=== PATIENT | female | born 2000 | race Caucasian/White ===

== ENCOUNTER 2018-01-28 23:04 | Emergency (ER) | payer BC, SELFPAY ==
[2018-01-28 23:06] VITALS: BP 119/95; PULSE 84; RESP 16; TEMP 36.4; O2SAT 97; BMI 42.9
--- NOTE | 2018-01-28 23:36 | ED.VIS.GEN ---
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 Cannot remember if her last menstrual cycle was 1 month ago or 2 months ago. She states she had severe sharp pelvic nonlateralizing pain tonight that is now gone. No nausea or vomiting, she had some urinary frequency for a short period of time but now she is urinating normally. She has had no vaginal bleeding, discharge, or gunter of fluid. Prior similar symptoms: No Past Medical History - Allergies and Home Meds Allergies/Adverse Reactions: Allergies ciprofloxacin Allergy (Verified 01/28/18 23:46) Angioedema ibuprofen Allergy (Verified 01/28/18 23:46) Angioedema Primary Care Physician: [facility] Doctor,Out of [NON-STAFF] - Past Medical History: None Lives: Roommate Drugs: None Review of Systems General: Reports: - - no syncope/near-syncope. Denies: Chills, Fever Eyes: Denies: Visual changes - bilaterally, Diplopia Gastrointestinal: Reports: Abdominal pain. Denies: Nausea, Vomiting, Diarrhea, Constipation, Hematochezia Genitourinary: Denies: Dysuria, Hematuria, Frequency, - - no vaginal bleeding Musculoskeletal: Denies: Back pain Physical Exam Vital Signs/Narrative: Vital Signs Temp Pulse Resp BP Pulse Ox 01/28/18 23:06 97.6 F L 84 16 119/95 H 97 Inital Vital Signs reviewed: Yes General: Well nourished, Well developed, Obese Head: Normocephalic, Atraumatic Cardiovascular: Regular rate, Regular rhythm, No murmurs. Negative for: Tachycardia Respiratory: No distress, CTA bilaterally Abdomen: Soft, Nontender, Nondistended, Normal bowel sounds Back: Nontender, Normal Inspection. Negative for: CVA tenderness Skin: Normal color, No rash Neurological: Alert, Oriented x3, Cranial nerves II-XII grossly intact, Normal Strength, Normal Sensation, Normal Gait Psychological: Normal affect Diagnostic/Tx/Re-eval Impressions Obstetrics Ultrasound 01/29/18 00:13 IMPRESSION: Single viable intrauterine gestation of 6 weeks, 1 day with estimated date of delivery of 09/23/2018. Minimal free fluid in the cul-de-sac. 2.9 cm simple appearing right ovarian cyst. Electronically Signed: Quang Jaime MD at 2:20 EST , Service support , 01/29/18 00:13 Transvaginal w/Preg US [US] Stat Laboratory Results 01/29/18 01/29/18 00:38 00:40 HCG, Quant 4307 H Urine Color Yellow Urine Clarity Clear Urine pH 6.0 Ur Specific [place] 1.020 Urine Protein Negative Urine Glucose (UA) Normal Urine Ketones Negative Urine Occult Blood Negative Urine Nitrite Negative Urine Bilirubin Negative Urine Urobilinogen Normal Ur Leukocyte Esterase Negative Urine RBC 0 SEEN Urine WBC 0 SEEN Ur Squamous Epith Cells 0-5 SEEN Urine Bacteria RARE Urine Mucus 1+ - Medical Decision Making I performed a bedside ultrasound with our screening ED ultrasound machine, however I was not able to see any intrauterine contents. Exam is somewhat limited secondary to obesity, and without having a full bladder, that also made it difficult. Therefore given her symptoms and undetermined early , further workup was obtained including a stat transvaginal ultrasound to rule out ectopic, urinalysis, hCG quantitative. Her quant is 4300, urinalysis is normal, and ultrasound verifies a single live intrauterine at approximately 6 weeks. There is also a simple ovarian cyst and a small amount of free fluid. No evidence of ectopic or heterotopic. 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 ED Disposition - Plan for ED Patient: Disposition: Home or Assisted Living Chief Complaint: Abd Pain Diagnosis: Threatened Instructions: ED Abdominal Pain Rule Out Ectopic Prescriptions: Vits96/Iron Fum/Folic [ Tablet] 1 ea PO DAILY #30 tab Referrals: [facility] Doctor,Out of [NON-STAFF] - Anna Marie Mcginnis MD [STAFF PHYSICIAN] - 1-2 Weeks
--- NOTE | 2018-01-28 23:40 | ED.DCSUM_ITS ---
History of Present Illness Chief Complaint: Abd Pain Informant: Patient Onset: Today - about 1-2 hrs [employer] Context: Sudden Onset - at rest Timing: Intermittent - x1, Lasts - 15 min Quality: sharp Location: pelvis Current Severity: gone Maximum Severity: Severe Worsened by: nothing Relieved by: nothing - spontaneously resolved Associated Symptoms: none Narrative: Patient states she is , she had a positive home test as well and is a positive qualitative test at the [facility], 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 Cannot remember if her last menstrual cycle was 1 month ago or 2 months ago. She states she had severe sharp pelvic nonlateralizing pain tonight that is now gone. No nausea or vomiting, she had some urinary frequency for a short period of time but now she is urinating normally. She has had no vaginal bleeding, discharge, or gunter of fluid. Prior similar symptoms: No Past Medical History - Allergies and Home Meds Allergies/Adverse Reactions: Allergies ciprofloxacin Allergy (Verified 01/28/18 23:46) Angioedema ibuprofen Allergy (Verified 01/28/18 23:46) Angioedema Primary Care Physician: [facility] Doctor,Out of [NON-STAFF] - Past Medical History: None Lives: Roommate Drugs: None Review of Systems General: Reports: - - no syncope/near-syncope. Denies: Chills, Fever Eyes: Denies: Visual changes - bilaterally, Diplopia Gastrointestinal: Reports: Abdominal pain. Denies: Nausea, Vomiting, Diarrhea, Constipation, Hematochezia Genitourinary: Denies: Dysuria, Hematuria, Frequency, - - no vaginal bleeding Musculoskeletal: Denies: Back pain Physical Exam Vital Signs/Narrative: Vital Signs Temp Pulse Resp BP Pulse Ox 01/28/18 23:06 97.6 F L 84 16 119/95 H 97 Inital Vital Signs reviewed: Yes General: Well nourished, Well developed, Obese Head: Normocephalic, Atraumatic Cardiovascular: Regular rate, Regular rhythm, No murmurs. Negative for: Tachycardia Respiratory: No distress, CTA bilaterally Abdomen: Soft, Nontender, Nondistended, Normal bowel sounds Back: Nontender, Normal Inspection. Negative for: CVA tenderness Skin: Normal color, No rash Neurological: Alert, Oriented x3, Cranial nerves II-XII grossly intact, Normal Strength, Normal Sensation, Normal Gait Psychological: Normal affect Diagnostic/Tx/Re-eval Impressions Obstetrics Ultrasound 01/29/18 00:13 IMPRESSION: Single viable intrauterine gestation of 6 weeks, 1 day with estimated date of delivery of 09/23/2018. Minimal free fluid in the cul-de-sac. 2.9 cm simple appearing right ovarian cyst. Electronically Signed: Quang Jaime MD at 2:20 EST , Service support , 01/29/18 00:13 Transvaginal w/Preg US [US] Stat Laboratory Results 01/29/18 01/29/18 00:38 00:40 HCG, Quant 4307 H Urine Color Yellow Urine Clarity Clear Urine pH 6.0 Ur Specific [place] 1.020 Urine Protein Negative Urine Glucose (UA) Normal Urine Ketones Negative Urine Occult Blood Negative Urine Nitrite Negative Urine Bilirubin Negative Urine Urobilinogen Normal Ur Leukocyte Esterase Negative Urine RBC 0 SEEN Urine WBC 0 SEEN Ur Squamous Epith Cells 0-5 SEEN Urine Bacteria RARE Urine Mucus 1+ - Medical Decision Making I performed a bedside ultrasound with our screening ED ultrasound machine, however I was not able to see any intrauterine contents. Exam is somewhat limited secondary to obesity, and without having a full bladder, that also made it difficult. Therefore given her symptoms and undetermined early , further workup was obtained including a stat transvaginal ultrasound to rule out ectopic, urinalysis, hCG quantitative. Her quant is 4300, urinalysis is normal, and ultrasound verifies a single live intrauterine at approximately 6 weeks. There is also a simple ovarian cyst and a small amount of free fluid. No evidence of ectopic or heterotopic. 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 ED Disposition - Plan for ED Patient: Disposition: Home or Assisted Living Chief Complaint: Abd Pain Diagnosis: Threatened Instructions: ED Abdominal Pain Rule Out Ectopic Prescriptions: Vits96/Iron Fum/Folic [ Tablet] 1 ea PO DAILY #30 tab Referrals: [facility] Doctor,Out of [NON-STAFF] - Anna Marie Mcginnis MD [STAFF PHYSICIAN] - 1-2 Weeks
--- NOTE | 2018-01-29 00:13 | US_ITS ---
STUDY: FIRST TRIMESTER OBSTETRICAL ULTRASOUND REASON FOR EXAM: Female, 17 years old. Pelvic pain. Positive test. LMP: 12/09/2017. TECHNIQUE: Transvaginal TECHNICAL QUALITY: Adequate. PRIOR ULTRASOUND: None. FINDINGS: There is visualization of a single gestational sac in a normal intrauterine position. The mean sac diameter (MSD) measures 9.9 mm, indicating an estimated gestational age (EGA) of 5 weeks, 5 days. The gestational sac shape is within normal limits. There is a visualized yolk sac. The yolk sac measures 3.4 mm.. The placenta is non-visualized. There is visualization of a live embryo. The crown-rump length (CRL) measures 4.0 mm, indicating an estimated gestational age (EGA) of 6 weeks, 1 days. There is demonstrated cardiac activity with a heart rate of 119 bpm. The estimated gestation age (EGA) by LMP is 70 weeks, 2 days. The estimated date of delivery (JOHNATHAN) by LMP is 09/15/2018.. The estimated gestation age (EGA) by US is 6 weeks, 1 days. The estimated date of delivery (JOHNATHAN) by US is 09/23/2018.. The uterus measures 9.1 x 6.1 x 5.1 cm. There is no demonstrated uterine fibroid. The cervix is closed. The right ovary measures 2.9 x 3.3 x 2.5 cm. There is a 2.9 cm simple appearing right ovarian cyst. There is no visualized right adnexal mass or complex lesion. There is vascular flow in the right ovary with no evidence for torsion. The left ovary was not visualized. There is a small amount of fluid in the cul de sac. US/Transvaginal w/Preg US IMPRESSION: Single viable intrauterine gestation of 6 weeks, 1 day with estimated date of delivery of 09/23/2018. Minimal free fluid in the cul-de-sac. 2.9 cm simple appearing right ovarian cyst. Electronically Signed: Quang Jaime MD at 2:20 EST , Service support ,
[2018-01-29 00:46] LABS: Red Blood Cells-Urine 0 SEEN /hpf (0-5); White Blood Cells 0 SEEN /hpf (0-5)
[2018-01-29 00:57] LABS: Color, Urine Yellow (Yellow); Glucose, Dipstick Normal (Normal); Ketone-Dipstick Negative (Negative); Leukocyte Esterase-Dipstick Negative /ul (Negative); Nitrite-Dipstick Negative (Negative); Occult Blood-Urine Negative /ul (Negative); Protein-Dipstick Negative (Negative); Urine Bilirubin Dipstick Negative (Negative); Urine Clarity Clear (Clear); Urine Urobilinogen Normal (Normal)
[2018-01-29 01:06] LABS: Bacteria RARE /hpf (None Seen); Mucous, Urine 1+ /hpf (<or=2+); Squamous Epithelial Cells - UA 0-5 SEEN /hpf (5-10)
[2018-01-29 01:48] LABS: hCG Titer Quant., Serum 4307 mIU/mL (<9 non-preg)
[2018-01-29 03:02] VITALS: BP 131/76; PULSE 76; RESP 15; O2SAT 99
--- OUTSIDE RECORDS SUMMARY | 2018-03-24 02:15 | XMS RPT_ITS ---
:2000 Author Organization OHIP Care Team Providers Name Role Phone KERRY DURHAM (BEN) Attending Unavailable JANAK HULL Attending Unavailable Primay Care Physicia, No Primary Care Unavailable PROBLEMS PROBLEMS No Problem Records FoundPROCEDURES PROCEDURES No Procedure Records FoundRESULTS RESULTS PROGRESS Observed: 01/31/2018 Status: COMPLETED Source: [place] 2:12 PM [facility] REPOSITORY HNO ID: [id number] Author: Kerry Durham Service: (none) Author Type: [employer] Type: Progress Notes Filed: 01/31/2018 6:23 PM Note Text: Milena Carlson is a 17 year old female who presents for problem visit for ER follow-up after evaluation after episode of RLQ pain on Monday for 1 day. 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 Monday RLQ pain noted, went to ER for pain. Resolved while in ER. Had RLQ that was sharp, knife stabbing pain. Patient LMP = 12/16/17 and she reports +uhcg when she presented to ER. Per ER report, negative findings for UTI and vaginal infections. Limited TVUS showed IUP 6+1 day with +CA (119 heart rate). 2cm cyst noted on Rt. Ovary. Currently patient has not had pain return, presents today with no pain. Patient reports some support at this time with unplanned . Reports ex-boyfriend knows she is but he has encouraged her to consider . Patient reports concern about her parents finding out she is ; especially her father who is strict and would not support her. Patient at this time is considering adoption options, but she is unsure and is still thinking about options. No past medical history on file. No past surgical history on file. No family history on file. Social History Marital status: Single Spouse name: Years of education: Number of children: Social History Main Topics Drug use: Unknown No current outpatient prescriptions on file. No current facility-administered medications for this visit. Allergies As of Date: 01/31/2018 (Not on File) REVIEW OF SYSTEMS Abdomen: No bloating, early satiety, indigestion, or increased flatulence. No abdominal pain, nausea, vomiting, diarrhea, or constipation. Bladder: No dysuria, gross hematuria, urinary frequency, urinary urgency, or incontinence. Breast: No breast lumps, nipple d/c, overlying skin changes, redness or skin retraction. Expanded ROS: N/A Allergies and current medication updated:Yes EXAM: BP 110/58 Ht 5' 7 (1.70m) Wt 266 lb (120.7kg) LMP 12/16/2017 BMI 41.65 kg/(m2). GENERAL: pleasant, female in no apparent distress HEENT: Normocephalic, atraumatic, mucus membranes moist and no lesions NECK: Supple, full range of motion, no adenopathy and thyroid normal DERMATOLOGY: Normal, without lesions, non-icteric and non-hirsute BREAST: deferred CHEST: Normal inspiratory effort ABDOMEN: soft, non-tender, no masses and pannus moderate PELVIC: deferred BIMANUAL: deferred NEURO: alert and oriented x3,exam grossly non-focal EXTREMITIES: normal ASSESSMENT AND PLAN: Encounter Diagnosis ICD-10-CM 1. 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 Follow-up exam Z09 1) [facility] Booklet given for review - to schedule PNOB + NOB visit. Patient prefers to schedule in 4 weeks after new year and after her winter break 2) Options counseling initiated 3) Initiation of teaching done - will continue at PNOB visit. Kerry Durham APRN.BENM CNOV Observed: 01/31/2018 Status: COMPLETED Source: [place] 2:00 PM [facility] REPOSITORY Office Visit (WOOB) MILENA CARLSON ([id number]) 2000 F Date Time Provider Department 01/31/18 2:00 PM KERRY DURHAM (BEN) BHAVYA During your visit today, we recorded the following information about you: Blood pressure Weight Height Last Period 110/58 120.7 kg 1.702 m 12/16/17 Kerry Durham APRN.CNM 01/31/2018 6:23 PM Signed Milena Carlson is a 17 year old female who presents for problem visit for ER follow-up after evaluation after episode of RLQ pain on Monday for 1 day. 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 Monday RLQ pain noted, went to ER for pain. Resolved while in ER. Had RLQ that was sharp, knife stabbing pain. Patient LMP = 12/16/17 and she reports +uhcg when she presented to ER. Per ER report, negative findings for UTI and vaginal infections. Limited TVUS showed IUP 6+1 day with +CA (119 heart rate). 2cm cyst noted on Rt. Ovary. Currently patient has not had pain return, presents today with no pain. Patient reports some support at this time with unplanned . Reports ex-boyfriend knows she is but he has encouraged her to consider . Patient reports concern about her parents finding out she is ; especially her father who is strict and would not support her. Patient at this time is considering adoption options, but she is unsure and is still thinking about options. No past medical history on file. No past surgical history on file. No family history on file. Social History Marital status: Single Spouse name: Years of education: Number of children: Social History Main Topics Drug use: Unknown No current outpatient prescriptions on file. No current facility-administered medications for this visit. Allergies As of Date: 01/31/2018 (Not on File) REVIEW OF SYSTEMS Abdomen: No bloating, early satiety, indigestion, or increased flatulence. No abdominal pain, nausea, vomiting, diarrhea, or constipation. Bladder: No dysuria, gross hematuria, urinary frequency, urinary urgency, or incontinence. Breast: No breast lumps, nipple d/c, overlying skin changes, redness or skin retraction. Expanded ROS: N/A Allergies and current medication updated:Yes EXAM: BP 110/58 Ht 5' 7 (1.70m) Wt 266 lb (120.7kg) LMP 12/16/2017 BMI 41.65 kg/(m2). GENERAL: pleasant, female in no apparent distress HEENT: Normocephalic, atraumatic, mucus membranes moist and no lesions NECK: Supple, full range of motion, no adenopathy and thyroid normal DERMATOLOGY: Normal, without lesions, non-icteric and non-hirsute BREAST: deferred CHEST: Normal inspiratory effort ABDOMEN: soft, non-tender, no masses and pannus moderate PELVIC: deferred BIMANUAL: deferred NEURO: alert and oriented x3,exam grossly non-focal EXTREMITIES: normal ASSESSMENT AND PLAN: Encounter Diagnosis ICD-10-CM 1. 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 Follow-up exam Z09 1) [facility] Booklet given for review - to schedule PNOB + NOB visit. Patient prefers to schedule in 4 weeks after new year and after her winter break 2) Options counseling initiated 3) Initiation of teaching done - will continue at PNOB visit. KASEY Schmitt APRN.CNM 01/31/2018 2:55 PM Signed [employer] Chewable Vitamins - 2 daily Gummy Vitamins Referring Provider: SELF [200] Allergies As of Date: 01/31/2018 Noted Allergy Reaction CIPROFLOXACIN 01/31/2018 14 - Other: See Comments Comments: Angiodima IBUPROFEN 01/31/2018 14 - Other: See Comments Comments: Angiodima Date Reviewed: 01/31/2018 Reviewed by: Gena Alford Ma - Fully Assessed Reason for Visit: Early OB [Other] Primary Visit Diagnosis:Secondary amenorrhea [N91.1] Other Visit Diagnosis:Follow-up exam [Z09] Problem List As Of Date: 01/31/2018 (None) Other instructions from your clinician: [employer] Chewable Vitamins - 2 daily Gummy Vitamins Disposition: Return in about 4 weeks (around 02/28/2018), or if symptoms worsen or fail to improve. Follow-up and Disposition History Recorded Encounter Status:Closed by KERRY DURHAM CNM on 01/31/18 EMERGENCY DEPARTMENT Observed: 01/29/2018 Status: F Source: [place] SUMMARY 2:35 AM [facility] REPOSITORY 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 Cannot remember if her last menstrual cycle was 1 month ago or 2 months ago. She states she had severe sharp pelvic nonlateralizing pain tonight that is now gone. No nausea or vomiting, she had some urinary frequency for a short period of time but now she is urinating normally. She has had no vaginal bleeding, discharge, or gunter of fluid. Prior similar symptoms: No Past Medical History - Allergies and Home Meds Allergies/Adverse Reactions: Allergies ciprofloxacin Allergy (Verified 01/28/18 23:46) Angioedema ibuprofen Allergy (Verified 01/28/18 23:46) Angioedema Primary Care Physician: [facility] Doctor,Out of [NON-STAFF] - Past Medical History: None Lives: Roommate Drugs: None Review of Systems General: Reports: - - no syncope/near-syncope. Denies: Chills, Fever Eyes: Denies: Visual changes - bilaterally, Diplopia Gastrointestinal: Reports: Abdominal pain. Denies: Nausea, Vomiting, Diarrhea, Constipation, Hematochezia Genitourinary: Denies: Dysuria, Hematuria, Frequency, - - no vaginal bleeding Musculoskeletal: Denies: Back pain Physical Exam Vital Signs/Narrative: Vital Signs 01/28/18 23:06 97.6 F L 84 16 119/95 H 97 Inital Vital Signs reviewed: Yes General: Well nourished, Well developed, Obese Head: Normocephalic, Atraumatic Cardiovascular: Regular rate, Regular rhythm, No murmurs. Negative for: Tachycardia Respiratory: No distress, CTA bilaterally Abdomen: Soft, Nontender, Nondistended, Normal bowel sounds Back: Nontender, Normal Inspection. Negative for: CVA tenderness Skin: Normal color, No rash Neurological: Alert, Oriented x3, Cranial nerves II-XII grossly intact, Normal Strength, Normal Sensation, Normal Gait Psychological: Normal affect Diagnostic/Tx/Re-eval Impressions Obstetrics Ultrasound 01/29/18 00:13 IMPRESSION: Single viable intrauterine gestation of 6 weeks, 1 day with estimated date of delivery of 09/23/2018. Minimal free fluid in the cul-de-sac. 2.9 cm simple appearing right ovarian cyst. Electronically Signed: Quang Jaime MD at 2:20 EST , Service support , 01/29/18 00:13 Transvaginal w/Preg US [US] Stat Laboratory Results HCG, Quant 4307 H Urine Color Yellow Urine Clarity Clear Urine pH 6.0 - Medical Decision Making I performed a bedside ultrasound with our screening ED ultrasound machine, however I was not able to see any intrauterine contents. Exam is somewhat limited secondary to obesity, and without having a full bladder, that also made it difficult. Therefore given her symptoms and undetermined early , further workup was obtained including a stat transvaginal ultrasound to rule out ectopic, urinalysis, hCG quantitative. Her quant is 4300, urinalysis is normal, and ultrasound verifies a single live intrauterine at approximately 6 weeks. There is also a simple ovarian cyst and a small amount of free fluid. No evidence of ectopic or heterotopic. 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 ED Disposition - Plan for ED Patient: Disposition: Home or Assisted Living Chief Complaint: Abd Pain Diagnosis: Threatened Instructions: ED Abdominal Pain Rule Out Ectopic Prescriptions: Vits96/Iron Fum/Folic [ Tablet] 1 ea PO DAILY #30 tab Referrals: Town Doctor,Out of [NON-STAFF] - Anna Marie Mcginnis MD [STAFF PHYSICIAN] - 1-2 Weeks What to do if you have Problems For any increased pain, shortness of breath, bleeding, nausea or vomiting, chest pain, or any unexpected problems, contact your Primary Care Provider. Call [facility] ([phone]) or report to the closest Emergency Room. Call 911 if necessary. 01/29/18 0235 <Electronically signed by Janak Hull MD> Date Janak Hull MD Cosigner Signature (If Indicated): Date CC: No Primary Care Physician HCG TITER QUANT., Collected: 01/29/2018 Status: F Source: [place] 12:40 AM [facility] REPOSITORY TYPE CODE TESTS RESULT OUT OF RANGE REFERENCE UNITS LAB L700.8000 <9 non-preg mIU/mL High HCG 4307 QUANT. Performed By: #### L700.8000 #### [facility] [address] [place], [place], [address] URINALYSIS, COMPLETE Collected: 01/29/2018 Status: F Source: [place] 12:38 AM [facility] REPOSITORY Order Comment: Order Date: 01/29/18 How was Urine Obtained? CLEAN CATCH TYPE CODE TESTS RESULT OUT OF RANGE REFERENCE UNITS LAB L400.3000 Yellow COLOR Normal Yellow LAB L400.3050 Clear Normal CLARITY Clear LAB L400.3200 Normal mg/dl Normal GLUCOSE, UR Normal LAB L400.3300 Negative mg/dL Normal BILIRUBIN URINE Negative LAB L400.3400 Negative mg/dl Normal KETONE UR Negative LAB L400.3465 1.002-1.030 Normal SP.GR. DIPSTX 1.020 LAB L400.3550 5.0 - 8.0 pH UR Normal 6.0 LAB L400.3600 Negative mg/dl PROT Normal DIPSTX Negative LAB L400.3700 Normal mg/dl Normal UROBILI Normal LAB L400.3750 Negative Normal NITRITE UR Negative LAB L400.3780 Negative /ul Normal OCCULT BLOOD-UR Negative LAB L400.3800 Negative /ul LEUK Normal ESTERASE Negative LAB L400.4050 0-5 /hpf WBC 0 Normal SEEN LAB L400.4100 0-5 /hpf 0 Normal RBC-UA SEEN LAB L400.4150 5-10 /hpf SQUAM Normal EPI 0-5 SEEN LAB L400.4300 None Seen /hpf Normal BACTERIA RARE LAB L400.4350 <or=2+ /hpf 1+ Normal MUCUS, URINE Performed By: #### L400.0001 #### [facility] [address] [place], [address] TRANSVAGINAL W/PREG US Observed: 01/29/2018 Status: F Source: [place] 12:14 AM [facility] REPOSITORY [facility] Imaging Services [address] [place] [address] Transvaginal w/Preg US MR#: [id number] Acct: [id number] Name: MILENA CARLSON Rep #: [id number] : 2000 F 17 From: Quang Jaime MD PCP: Care Physician, No Primary Status: REG ER Study: Transvaginal w/Preg US Date of Exam: 01/29/18 Exam# [id number] Ordering Dr: Janak Hull MD STUDY: FIRST TRIMESTER OBSTETRICAL ULTRASOUND REASON FOR EXAM: Female, 17 years old. Pelvic pain. Positive test. LMP: 12/09/2017. TECHNIQUE: Transvaginal TECHNICAL QUALITY: Adequate. PRIOR ULTRASOUND: None. FINDINGS: There is visualization of a single gestational sac in a normal intrauterine position. The mean sac diameter (MSD) measures 9.9 mm, indicating an estimated gestational age (EGA) of 5 weeks, 5 days. The gestational sac shape is within normal limits. There is a visualized yolk sac. The yolk sac measures 3.4 mm.. The placenta is non-visualized. There is visualization of a live embryo. The crown-rump length (CRL) measures 4.0 mm, indicating an estimated gestational age (EGA) of 6 weeks, 1 days. There is demonstrated cardiac activity with a heart rate of 119 bpm. The estimated gestation age (EGA) by LMP is 70 weeks, 2 days. The estimated date of delivery (JOHNATHAN) by LMP is 09/15/2018.. The estimated gestation age (EGA) by US is 6 weeks, 1 days. The estimated date of delivery (JOHNATHAN) by US is 09/23/2018.. The uterus measures 9.1 x 6.1 x 5.1 cm. There is no demonstrated uterine fibroid. The cervix is closed. The right ovary measures 2.9 x 3.3 x 2.5 cm. There is a 2.9 cm simple appearing right ovarian cyst. There is no visualized right adnexal mass or complex lesion. There is vascular flow in the right ovary with no evidence for torsion. The left ovary was not visualized. There is a small amount of fluid in the cul de sac. US/Transvaginal w/Preg US IMPRESSION: Single viable intrauterine gestation of 6 weeks, 1 day with estimated date of delivery of 09/23/2018. Minimal free fluid in the cul-de-sac. 2.9 cm simple appearing right ovarian cyst. Electronically Signed: Quang Jaime MD at 2:20 EST , Service support , CC: No Primary Care Physician; JANAK HULL MD Cloth Tearer: Signed ALLERGIES ALLERGIES DATE TYPE / CODE NAME / CODE REACTION SEVERITY SOURCE 01/28/2018 Drug ibuprofen/F0 Angioedema Unknown [facility] Allergy/4160 [id number](N [facility] [address](SNOMED ORM) Repository CT) 01/28/2018 Drug ciprofloxaci Angioedema Unknown [facility] Allergy/4160 n/[id number] [place] [address](SNOMED (RXNORM) Repository CT) ENCOUNTERS ENCOUNTERS ADMIT/DISCHARGE ACCOUNT ADMITTING ENCOUNTER LOCATION SOURCE NUMBER CLASS 01/31/2018/02/02/20 [id number] Ambulatory [address] Repository 01/28/2018/01/30/20 [id number] [facility] PAYERS PAYERS ENCOUNTER GUARANTOR PAYER SUBSCRIBER SOURCE 01/28/2018 MILENA [id number] Primary LAURE H Syeda MARLEY Insurance:Desirae STOVALL [facility] [id number] cy Number: [place], [place] [address]Ogu: [id number] Repository e Date:[id number] () [address], [place] [address]VH: 01/28/2018 Secondary NOT GIVENKENDAL Landa Insurance:SELF PAY [facility] Number: Effective Repository Date:2018-01-28
== END 2018-01-29 03:02 | disposition home or self-care (01) ==
PROVIDERS: Emergency Provider Emergency Medicine
DX: O20.0 Threatened abortion (principal); N83.201 Unspecified ovarian cyst, right side; Z3A.01 Less than 8 weeks gestation of pregnancy
CPT/HCPCS: 76817; 81001; 84702; 99282

== ENCOUNTER 2018-04-04 13:55 | Emergency (ER) | payer BC, SELFPAY ==
[2018-04-04 13:55] VITALS: BP 141/72; PULSE 85; RESP 18; TEMP 36.9; O2SAT 95; BMI 39.1
--- NOTE | 2018-04-04 14:21 | EKG12_ITS ---
Test Reason : DIZZINESS Blood Pressure : / mmHG Vent. Rate : 065 BPM Atrial Rate : 065 BPM P-R Int : 122 ms QRS Dur : 078 ms QT Int : 372 ms P-R-T Axes : 005 006 014 degrees QTc Int : 386 ms Normal sinus rhythm with sinus arrhythmia Normal ECG Confirmed by KELLEN RIVERA, RIKI ([id number]), design editor ROSIE GONZALEZ ([id number]) on 04/09/2018 9:42:05 AM Referred By: MISHEL Confirmed By:RIKI FOREMAN MD
[2018-04-04 14:55] LABS: Absolute Lymphocyte Count 1.96 X10^3/ul (0.83-4.51); Basophil# 0.03 X10^3/uL; Basophil% 0.4 % (0-1); Eosinophil# 0.09 X10^3/uL; Eosinophils% 1.2 % (0-5); Hematocrit 36.9 % (37-47); Hemoglobin 12.3 g/dl (12.0-15.0); Lymphocyte # 1.96 X10^3/ul (4.0); Lymphocyte % 26.4 % (19-41); Mean Corp Hgb Conc 33.3 g/gl (32-36); Mean Corpuscular Hgb 29.1 pg (27.0-32.0); Mean Corpuscular Volume 87.2 fL (81-99); Mean Platelet Vol. 9.2 fl (6.2-12.0); Monocyte# 0.37 X10^3/uL; Neutrophil # 4.96 X10^3/uL (2.7-7.7); Neutrophil % 66.7 % (47-70); Platelet Count 226 K/mm3 (150-450); RBC Distribution Width CV 13.3 % (11.6-14.6); RBC Distribution Width SD 42.5 fl (35.1-43.9); Red Blood Count 4.23 M/mm3 (4.2-5.4); White Blood Count 7.4 K/mm3 (4.4-11.0)
[2018-04-04 14:57] LABS: POSITIVE COUNT NO; POSITIVE DIFFERENTIAL NO; POSITIVE MORPHOLOGY NO
[2018-04-04 14:59] LABS: Red Blood Cells-Urine 0 SEEN /hpf (0-5)
[2018-04-04 15:01] LABS: Color, Urine Yellow (Yellow); Glucose, Dipstick Normal (Normal); Ketone-Dipstick 5 mg/dl (Negative); Leukocyte Esterase-Dipstick 25 /ul (Negative); Nitrite-Dipstick Negative (Negative); Occult Blood-Urine Negative /ul (Negative); Protein-Dipstick 15 mg/dl (Negative); Specific Gravity, Urine 1.015 (1.002-1.030); Urine Bilirubin Dipstick Negative (Negative); Urine Clarity Sl. Cloudy (Clear); Urine Urobilinogen Normal (Normal)
[2018-04-04 15:09] LABS: Bacteria 1+ /hpf (None Seen); Mucous, Urine 1+ /hpf (<or=2+); Squamous Epithelial Cells - UA 0-5 SEEN /hpf (5-10); White Blood Cells 0-5 SEEN /hpf (0-5)
[2018-04-04 15:10] VITALS: BP 110/50; BP 120/70; BP 128/84; PULSE 62; PULSE 63; PULSE 70; PULSE 85; RESP 16; O2SAT 99
[2018-04-04 15:10] LABS: ALB/GLOB Ratio 0.8 RATIO (0.9-2.4); AST(SGOT) 17 U/L (15-37); Alanine Aminotransfer ALT/SGPT 20 U/L (13-56); Albumin, Serum 3.3 g/dL (3.2-5.0); Alkaline Phosphatase 63 U/L (45-117); Anion Gap 7 (5-15); BUN 6 mg/dL (7-18); BUN/Creat Ratio 11.3 RATIO (10-20); Calcium,Total 9.1 mg/dL (8.5-10.1); Chloride 108 mmol/L (98-107); Creatinine, Serum 0.53 mg/dL (0.55-1.02); EST Glomerular Filtration Rate 156 mL/min (>60); Est Glom Filt Rate - Afr Amer 189 mL/min (>60); Estimated Creatinine Clearance 166.03 ml/min; Globulin 3.9 g/dL (2.2-4.2); Glucose 78 mg/dL (74-106); Potassium 3.8 mmol/L (3.5-5.1); Protein, Total 7.2 g/dL (6.4-8.2); Sodium Level 138 mmol/L (136-145)
[2018-04-04] MEDS: 0.9% Normal Saline 1,000 ML 999 ML IV (15:10)
[2018-04-04 15:49] LABS: Acetaminophen (Tylenol) Level 22.2 ug/mL (10.0-30.0)
--- NOTE | 2018-04-04 15:56 | ED.VISSUMM ---
- ER Visit Summary Date of Service: 04/04/18 Chief Complaint: 17-year-old at 16 weeks by first trimester ultrasound presents with lightheadedness intermittently for the past 3 days. She states that this is not an unusual issue for her and she dealt with it even before the . She states that when she stands up too quickly, she gets lightheaded. No ataxia or spinning sensation. No vertigo. No abdominal pain, vaginal bleeding, or loss of fluid. No back pain. No fever or chills. She states that she has been taking a gram of Tylenol every 4-6 hours for the past day or so because she has been feeling lightheaded. She states that Tylenol is the only medication that she ever takes and it typically makes her feel better. Physical Examination: Vitals are within normal limits. She is not in distress. Neck is supple. Heart tones are regular and without murmur. Lungs are clear bilaterally. Abdomen is soft and nontender. No focal or lateralizing neuro findings. No tenderness along the lower extremity venous system Test Results: CBC and chemistries within normal limits she has no clinical evidence of DVT. Tylenol level within therapeutic limits. heart tones normal. EKG unremarkable. She has no chest pain or shortness of breath. No murmur. Flu swab negative. She was observed and feels quite well. She can walk without difficulty. She can stand up quickly without trouble. The exact cause of her symptoms is not clear but given her well appearance, I feel she can safely be discharged home with close follow-up. She does not yet have an MICROFILM CLERK physician so I did refer her to the on-call physician. She will call today to make an appointment and return if she has any recurrence of symptoms. She was instructed not to take Tylenol unless absolutely needed and I gave her instructions for appropriate dosing. Treatment Plan: Drink plenty of fluids at home, come back if worse Disposition: Home stable Impression: Initial encounter lightheadedness uncertain etiology, second trimester This note was generated with [employer] dictation software. It may contain incorrect words, spelling, and punctuation that were not noted in review of the chart prior to signing ED Disposition - Plan for ED Patient: Instructions: ED Dizziness UKO Referrals: Anna Marie Mcginnis MD [STAFF PHYSICIAN] - As soon as possible
--- NOTE | 2018-04-04 16:00 | ED.DCSUM_ITS ---
- ER Visit Summary Date of Service: 04/04/18 Chief Complaint: 17-year-old at 16 weeks by first trimester ultrasound presents with lightheadedness intermittently for the past 3 days. She states that this is not an unusual issue for her and she dealt with it even before the . She states that when she stands up too quickly, she gets lightheaded. No ataxia or spinning sensation. No vertigo. No abdominal pain, vaginal bleeding, or loss of fluid. No back pain. No fever or chills. She states that she has been taking a gram of Tylenol every 4-6 hours for the past day or so because she has been feeling lightheaded. She states that Tylenol is the only medication that she ever takes and it typically makes her feel better. Physical Examination: Vitals are within normal limits. She is not in distress. Neck is supple. Heart tones are regular and without murmur. Lungs are clear bilaterally. Abdomen is soft and nontender. No focal or lateralizing neuro findings. No tenderness along the lower extremity venous system Test Results: CBC and chemistries within normal limits she has no clinical evidence of DVT. Tylenol level within therapeutic limits. heart tones normal. EKG unremarkable. She has no chest pain or shortness of breath. No murmur. Flu swab negative. She was observed and feels quite well. She can walk without difficulty. She can stand up quickly without trouble. The exact cause of her symptoms is not clear but given her well appearance, I feel she can safely be discharged home with close follow-up. 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 She will call today to make an appointment and return if she has any recurrence of symptoms. She was instructed not to take Tylenol unless absolutely needed and I gave her instructions for appropriate dosing. Treatment Plan: Drink plenty of fluids at home, come back if worse Disposition: Home stable Impression: Initial encounter lightheadedness uncertain etiology, second trimester This note was generated with [employer] dictation software. It may contain incorrect words, spelling, and punctuation that were not noted in review of the chart prior to signing ED Disposition - Plan for ED Patient: Instructions: ED Dizziness UKO Referrals: Anna Marie Mcginnis MD [STAFF PHYSICIAN] - As soon as possible
--- NOTE | 2018-04-04 16:04 | ED.VISSUMM ---
- ER Visit Summary Date of Service: 04/04/18 Chief Complaint: [] History of Present Illness: The patient is a 17 F [] Physical Examination: [] Test Results: [] Emergency Department Course and Treatment: [] Treatment Plan: [] Disposition: [] Impression: [] This note was generated with [employer] software. It may contain incorrect words, spelling, and punctuation that were not noted in review of the chart prior to signing ED Disposition - Plan for ED Patient: Instructions: ED Dizziness UKO Referrals: Anna Marie Mcginnis MD [STAFF PHYSICIAN] - As soon as possible
[2018-04-04 16:18] VITALS: BP 115/64; PULSE 61; RESP 18; O2SAT 99
== END 2018-04-04 16:19 | disposition home or self-care (01) ==
PROVIDERS: Emergency Provider Emergency Medicine
DX: O26.892 Other specified pregnancy related conditions, second trimester (principal); R42 Dizziness and giddiness; Z3A.16 16 weeks gestation of pregnancy
CPT/HCPCS: 80053; 80329; 81001; 85025; 87086; 87804; 93005; 99285; A4216; G0480